=== PATIENT | female | born 1950 ===

== ENCOUNTER 2018-10-29 09:36 | Inpatient (IN) | payer MEDICARE ==
[~2018-10-29 09:36] MED LIST: Buffered Lidocaine 1% SYRIN* 1 ML/SYRINGE INTRADERM ONE; Lactated Ringers 1000 ML Bag* 1,000 ML IV SCH; Sodium Citrate/Citric Acid* 15 ML UDC PO ONE
--- OUTSIDE RECORDS SUMMARY | 2018-10-29 09:40 | XMS REPORT | Continuity of Care Document ---
:1950 External Reference #:[id number] Author Name Roberto Grey M.D. (transmitted by agent of provider Vitor Reese) Address [address] [place] [id number] Care Team Providers Name Role Shayna Lindsay RPA - Medical Care Team Information Top Frame Fitter [phone] Problems Active Problems Provider Date Sensorineural hearing loss Damon Wadsworth M.D. Onset: 11/30/2011 Note: bilateral aides Essential hypertension Shayna Small PA Onset: 09/11/2018 Hypothyroidism Shayna Small PA Onset: 09/11/2018 Note: 2003 Obstructive sleep apnea syndrome ANUM Jaimes Onset: 09/11/2018 Non-alcoholic fatty liver Shayna Small PA Onset: 09/11/2018 Hyperglycemia Shayna Small, PA Onset: 09/25/2018 Degenerative joint disease involving multiple Shayna Small PA Onset: 08/2018 joints Note: cervical/lumbar spine, feet, hand History of polyp of colon ANUM Jaimes Onset: 09/25/2018 Note: hyperplastic 2014 Social History Type Date Description Comments Sex Unknown Tobacco Use Start: Unknown Never Smoked Cigars Tobacco Use Start: Unknown Never Smoked A Pipe Smokeless Tobacco Never Used Smokeless Tobacco ETOH Use Rarely consumes alcohol Couple per year Tobacco Use Start: Unknown End: Patient is a former smoker Unknown Smoking Status Reviewed: 09/25/18 Patient is a former smoker Enjoy Exercising Does not enjoy exercising Allergies, Adverse Reactions, Alerts Description No Known Drug Allergies Medications Active Medications SIG Qnty Indications Ordering Provider Date Naproxen 1 tablet with 90tabs Damon 09/25/2018 500mg Tablets food by mouth MD Kevin in Am Metoprolol Tartrate 1 tab by mouth 30tabs Damon 09/25/2018 50mg once a day MD Kevin Tablets Lisinopril-Hydrochlorot 2 tabs by mouth 60tabs Damon 09/11/2018 hiazide every day MD Kevin 20-12.5mg Tablets Levothyroxine Sodium 1 tab by mouth 90tabs Damon 100mcg every day MD Kevin Tablets Vitamin D3 1 by mouth Unknown 1000Unit every day Capsules History Medications Metoprolol Succinate 1 by mouth 90tabs Damon Brown MD 09/25/2018 - ER every day 09/25/2018 25mg Tablets ER 24HR Immunizations Description No Information Available Vital Signs Date Vital Result Comment 10/08/2018 11:18am Height 61.5 inches 5'1.50" Weight 220.00 lb Heart Rate 65 /min BP Systolic 102 mmHg BP Diastolic 70 mmHg Respiratory Rate 18 /min Pain Level 0 BMI (Body Mass Index) 40.9 kg/m2 09/25/2018 11:42am Height 61.5 inches 5'1.50" Weight 222.06 lb Heart Rate 56 /min BP Systolic Sitting 132 mmHg BP Diastolic Sitting 82 mmHg O2 % BldC Oximetry 96 % BMI (Body Mass Index) 41.3 kg/m2 Results Description No Information Available Procedures Date Code Description Status 07/04/2017 25821178 Mammogram Completed 04/04/2013 97922734 Colonoscopy Completed 03/24/2008 695591857 Bone Mineral Density Test Completed Medical Devices Description No Information Available Encounters Type Date Location Provider Dx Diagnosis Office Visit 09/25/[address] [facility] Shayna Small, I10 Essential ( primary) 11:30a PA hypertension E03.9 Hypothyroidism, unspecified R73.9 Hyperglycemia, unspecified M47.896 Other spondylosis, lumbar region Assessments Date Code Description Provider 09/25/2018 I10 Essential (primary) hypertension ANUM Jaimes 09/25/2018 E03.9 Hypothyroidism, unspecified ANUM Jaimes 09/25/2018 R73.9 Hyperglycemia, unspecified Shayna Small PA 09/25/2018 M47.896 Other spondylosis, lumbar region ANUM Jaimes Plan of Treatment 09/25/2018 - Shayna [place], PAI10 Essential (primary) hypertensionComments: Continue current medication(s): Lisinopril HCTZ 20-12.5mg two tabs daily, Metoprolol tartrate 50mg daily (had been BID)Discussed BP medications and weight lossE03.9 Hypothyroidism, unspecifiedComments:Continue current supplementation: LT 100mcg gvajaF63.9 Hyperglycemia, unspecifiedNew Labs: Hemoglobin A1c (Glyco HGB), Ordered: 09/25/18Comments:Will be having pre-op labwork later this monthOrder given as extlyK55.896 Other spondylosis, lumbar regionComments:Discussed contraindication with NSAID and bariatric procedure, Tylenol as a substituteAllNew Medication:Naproxen 500 mg - 1 tablet with food by mouth in AmMetoprolol Tartrate 50 mg - 1 tab by mouth once a dayMetoprolol Succinate ER 25 mg - 1 by mouth every dayComments:Corrected/adjusted medication list:Follow up:as needed Functional Status Functional Condition Comment Date Status Hearing Aid in Both ears Active Mental Status Description No Information Available Referrals Description No Information Available
[2018-10-29] MEDS ORDERED: ceFAZolin 2 GM in NS PREMIX(*) 2 GM/100 ML BAG IVPB ONE (10:22)
[2018-10-29] MEDS ORDERED: Heparin VIAL(*) 5000 UNITS/ML VIAL (FIVE THOUSAND) ONE (10:22)
[2018-10-29] MEDS ORDERED: Sodium Citrate/Citric Acid* 15 ML UDC ONE (10:22)
[2018-10-29] MEDS ORDERED: Buffered Lidocaine 1% SYRIN* 1 ML/SYRINGE INTRADERM ONE (10:22)
[2018-10-29] MEDS ORDERED: ceFAZolin 1 GM ADVAN(*) 1 GM ADDV.VIAL IVPB ONE (10:22)
[2018-10-29] MEDS ORDERED: Bupivacaine 0.25% EPI 200,000* 30 ML SDV ONE (12:07)
[2018-10-29] MEDS ORDERED: Propofol* 10 MG/ML 20 ML BTL ONE (12:35)
[2018-10-29] MEDS ORDERED: Lidocaine 2% PF * 5 ML VIAL ONE (12:36)
[2018-10-29] MEDS ORDERED: Rocuronium* 10 MG/ML VIAL ONE (12:36)
[2018-10-29] MEDS ORDERED: Sugammadex * 200 MG/2 ML VIAL IV PUSH ONE (12:39)
[2018-10-29] MEDS ORDERED: fentaNYL* 50 MCG/ML 2 ML VIAL (100 MCG VIAL) ONE ×4 (12:39→15:22)
[2018-10-29] MEDS ORDERED: Ondansetron INJ* 2 MG/ML VIAL ONE (12:50)
[2018-10-29] MEDS ORDERED: Dexamethasone IV* 4 MG/ML 1 ML (4 MG) ONE (12:50)
[2018-10-29] MEDS ORDERED: Ketorolac INJ* 30 MG/ML 1 ML VIAL ONE (13:16)
[2018-10-29] MEDS ORDERED: Acetaminophen IV 1GM/100ML * 1,000 MG/100 ML VIAL IVPB ONE (13:49)
[2018-10-29] MEDS ORDERED: Naloxone* 0.4 MG/ML 1 ML VIAL IV PRN (13:49)
[2018-10-29] MEDS ORDERED: Acetaminophen IV 1GM/100ML * 100 ML ONE (14:01)
--- NOTE | 2018-10-29 14:11 | BRIEFOPN ---
Brief Operative/Procedure Note - Operation Details Pre-Op Diagnosis: morbid obesity Post-Op Diagnosis: same Procedures: laparoscopic sleeve gastrectomy Surgeon(s)/Proceduralists: Danyel. Assist: ANUM Moran Anesthesia: GET Estimated Blood Loss: < 50 ml; Fluids: 1600 ml RL Findings: as above Specimen(s)/Culture(s) Description: portion stomach Complications: none
[2018-10-29] MEDS ORDERED: Ondansetron INJ* 2 MG/ML VIAL IV PRN (14:12)
[2018-10-29] MEDS ORDERED: HYDROcodone/ACET. 7.5/325 LIQ* 15 ML UDC PO PRN (14:12)
[2018-10-29] MEDS ORDERED: Acetaminophen ADULT LIQ* 650 MG/20.3 ML UDC PO PRN (14:12)
[2018-10-29] MEDS ORDERED: diPHENhydraMINE IV* 50 MG/ML 1 ml VIAL (BENADRYL) SLOW PUSH PRN (14:12)
[2018-10-29] MEDS ORDERED: DiMENhydriNATE IV* 50 MG/ML VIAL ONE (14:17)
[2018-10-29] MEDS ORDERED: Scopolamine 1.5 mg* PATCH ONE (14:17)
[2018-10-29] MEDS ORDERED: HYDROmorphone INJ1* 1 MG/ML SYRINGE IV SLOW PU PRN (14:17)
[2018-10-29] MEDS: fentaNYL* 50 MCG/ML 2 ML VIAL (100 MCG VIAL) IV PRN ×4 (15:08→15:28)
[2018-10-29] MEDS: Lactated Ringers 1000 ML Bag* 1,000 ML IV SCH ×2 (16:20→22:47)
[2018-10-29] MEDS: Ketorolac INJ* 15 MG/ML 1 ML VIAL IV PRN ×2 (16:53→22:53)
[2018-10-29] MEDS: Metoprolol Tartrate IV* 1 MG/ML 5 ML VIAL IV SCH ×2 (16:54→22:38)
[2018-10-29] MEDS: Heparin VIAL(*) 5000 UNITS/ML VIAL (FIVE THOUSAND) SUBCUT SCH (21:00)
[2018-10-29] MEDS: Famotidine IV* 10 MG/ML 2 ML (20 mg) IV SLOW PU SCH (21:00)
--- NOTE | 2018-10-30 00:34 | OP ---
CC: Shayna Small [facility]; [facility] * DATE OF OPERATION: 10/29/18 - ROOM #351 DATE OF : 46 SURGEON: Luis Montaño MD RN ACCESS: ANUM Worthington ANESTHESIOLOGIST: Dr. Oneill. ANESTHESIA: General endotracheal. PRE-OP DIAGNOSIS: Morbid obesity. POST-OP DIAGNOSIS: Morbid obesity. OPERATIVE PROCEDURE: Laparoscopic sleeve gastrectomy. ESTIMATED BLOOD LOSS: Minimal. IV FLUIDS: Crystalloid. SPECIMEN: Portions of stomach. DRAINS: None. COMPLICATIONS: None. COUNTS: Instrument, needle, and sponge counts were correct. DESCRIPTION OF PROCEDURE: The patient was brought to the operative room and placed on the table supine. Sequential compression devices were placed on both lower extremities. General anesthesia was administered. The patient was positioned and padded appropriately. She received appropriate intravenous antibiotics and time-out was performed. Local anesthetic was infiltrated into the skin, soft tissue prior to making incision. Entry into the abdomen was through a left upper quadrant incision accommodating a 5-mm optical trocar. After accessing the peritoneal cavity, carbon dioxide was insufflated to a pressure of 15 mmHg. Under direct visualization, 12-mm bladeless trocars were placed in the supraumbilical midline and right upper quadrant. A 5-mm trocar was placed in the left upper quadrant laterally. A Lashay liver retractor was placed percutaneously in the subxiphoid position and used to elevate the left lobe of the liver. Gastric anatomy appeared normal. The pylorus was identified and 6-cm proximal to this, the greater curvature skeletonized with the LigaSure. The division of the short gastric vessels was completed to the gastroesophageal junction. The lesser sac adhesions were divided with LigaSure as well until the stomach was appropriately mobilized. A sleeve gastrectomy was performed over a 40-[place] bougie with serial findings of the Endo SANTIAGO stapler with purple reinforced cartridges. The specimen was retrieved through an endoscopic retrieval bag in the right upper quadrant incision. The stapler line was inspected, noted to be intact and hemostatic. The Lashay liver retractor and ports removed under direct visualization. The right upper quadrant wound extraction site was closed with 0 Vicryl in an interrupted fashion to approximate the fascia. The skin incisions were then closed with 4-0 Monocryl in subcuticular fashion and DermaFlex was applied. The patient tolerated the procedure well, was extubated and transferred to Recovery in stable condition. [id number]/[facility] #: [id number] [facility] HOSPITALAida
[2018-10-30] MEDS: Metoprolol Tartrate IV* 1 MG/ML 5 ML VIAL IV SCH (03:58)
[2018-10-30] MEDS: Lactated Ringers 1000 ML Bag* 1,000 ML IV SCH ×2 (05:29→12:21)
[2018-10-30] MEDS: Ketorolac INJ* 15 MG/ML 1 ML VIAL IV PRN (05:33)
[2018-10-30] MEDS: Heparin VIAL(*) 5000 UNITS/ML VIAL (FIVE THOUSAND) SUBCUT SCH ×2 (05:34→14:22)
[2018-10-30] MEDS ORDERED: Levothyroxine INJ* 100 MCG/5 ML VIAL IV SCH (06:00)
--- NOTE | 2018-10-30 08:18 | PN ---
Progress Note - Progress Note Date of Service: 10/30/18 SOAP: Subjective: Reports abdominal pain on right side. No N/V/GERD. Objective: Vital Signs Temp 98.8 F 10/30/18 07:46 Pulse 75 10/30/18 07:46 Resp 16 10/30/18 07:46 BP 124/58 10/30/18 07:46 Pulse Ox 95 10/30/18 07:46 Gen: sitting up at bedside; NAD Abd: incisions c/d/i; soft and min tender Intake & Output 10/29/18 10/30/18 10/30/18 18:59 06:59 18:59 Intake Total 1700 1939 Output Total 50 200 300 Balance 1650 1739 -300 Weight 213 lb Intake: IV Fluids 1700 1939 LR 1600 193 NS 100ML, Cefazolin 2G 100 Oral 0 Output: Urine 200 300 Estimated Blood Loss 50 Other: Estimated Void Medium # Voids 1 Assessment: POD#1 s/p LSG Doing well. Plan: Adv diet. Amb. PO meds. Home late today or AM depending on po intake.
[2018-10-30] MEDS ORDERED: Fluticasone NASAL SPRAY 50MCG* 16 gm SPRAY BTL BOTH NARES SCH (09:00)
[2018-10-30] MEDS ORDERED: Metoprolol Succinate XL TAB* 200 MG TAB.XL PO SCH ×2 (09:00)
[2018-10-30] MEDS ORDERED: Levothyroxine TAB* 100 MCG TAB PO SCH (09:00)
[2018-10-30] MEDS ORDERED: Metoprolol Succinate XL TAB* 50 MG PO SCH (10:05)
[2018-10-30] MEDS: Famotidine IV* 10 MG/ML 2 ML (20 mg) IV SLOW PU SCH (10:11)
[2018-10-30] MEDS ORDERED: HYDROmorphone INJ* 0.5 MG/0.5 ML SYRINGE IV SLOW PU PRN (14:00)
[2018-10-30] MEDS ORDERED: D5W 1/2 NS KCl 20 Meq 1000 ML* 1,000 ML IV SCH (14:15)
[2018-10-30 15:18] VITALS: BP 142/66
--- NOTE | 2018-10-30 22:21 | DS ---
CC: ANUM Jaimes with Dr. Brown' office * DISCHARGE SUMMARY: DATE OF ADMISSION: 10/29/18 DATE OF DISCHARGE: 10/30/18 ATTENDING SURGEON: Dr. Luis Montaño * (ANUM Worthington dictating) HOSPITAL COURSE: Please refer to admission history and physical and operative note for details. The patient was taken to the operating room on 10/29/18, at which time she underwent laparoscopic sleeve gastrectomy with Dr. Montaño. She has had an uneventful postoperative course and met criteria for discharge the evening of postoperative day 1. See separate progress note from the morning of postoperative day [address] Montaño. IMPRESSION: Status post laparoscopic sleeve gastrectomy. PLAN: Home today. Instructions reviewed. She will use a 50 mg extended release metoprolol [address] of her usual 200 mg extended release. She will contact her PCP office to have this prescribed and will have that from the hospital pharmacy to cover for the next 2 days. We will hold her lisinopril, hydrochlorothiazide for the present time. She will resume her other usual medications. She is discharged to home in good condition. ANUM WORTHINGTON [id number]/[facility] #: [id number] MTDD
== END 2018-10-30 17:45 | disposition home or self-care (01) | DRG 621 ==
LOC: AA 09:36 → SSU 16:12
PROVIDERS: ADMIT Surgery; ATTEND Surgery
PROC: 0DB64Z3 Excision of Stomach, Percutaneous Endoscopic Approach, Vertical (ICD-10-PCS; principal; 2018-10-29 11:45)
DX: E66.01 Morbid (severe) obesity due to excess calories (principal); I10 Essential (primary) hypertension; E78.5 Hyperlipidemia, unspecified; M19.90 Unspecified osteoarthritis, unspecified site; R73.03 Prediabetes; G47.33 Obstructive sleep apnea (adult) (pediatric); N39.46 Mixed incontinence; M54.9 Dorsalgia, unspecified; J44.9 Chronic obstructive pulmonary disease, unspecified; F41.9 Anxiety disorder, unspecified; F32.9 Major depressive disorder, single episode, unspecified; E78.00 Pure hypercholesterolemia, unspecified; K58.9 Irritable bowel syndrome, unspecified; K63.5 Polyp of colon; K76.0 Fatty (change of) liver, not elsewhere classified; H91.90 Unspecified hearing loss, unspecified ear; E89.0 Postprocedural hypothyroidism; Z90.49 Acquired absence of other specified parts of digestive tract; Z98.51 Tubal ligation status; Z82.49 Family history of ischemic heart disease and other diseases of the circulatory system; Z83.3 Family history of diabetes mellitus; Z81.8 Family history of other mental and behavioral disorders; Z68.41 Body mass index [BMI] 40.0-44.9, adult; Z82.61 Family history of arthritis; Z82.3 Family history of stroke; Z83.49 Family history of other endocrine, nutritional and metabolic diseases; Z80.0 Family history of malignant neoplasm of digestive organs; Z72.89 Other problems related to lifestyle; Z87.891 Personal history of nicotine dependence; Z82.5 Family history of asthma and other chronic lower respiratory diseases
CPT/HCPCS: 43775; 88307; A9270-GY; J0690; J1100; J1170; J1240; J1644; J1885; J2405; J2704; J3010; J3490